=== PATIENT | female | born 1935 | race Caucasian/White ===

== ENCOUNTER 2023-05-04 10:19 | Outpatient (CLI) | payer MEDICARE, SELFPAY | END 2023-05-04 10:20 | disposition home or self-care (01) | LOC: NFLDREF 05-07 18:11 | PROVIDERS: PCP Physician Assistant Medical; Referring Provider Physician Assistant Medical; Visit Provider Physician Assistant Medical | DX: E03.9 Hypothyroidism, unspecified (principal); E53.8 Deficiency of other specified B group vitamins; E78.5 Hyperlipidemia, unspecified; I10 Essential (primary) hypertension | CPT/HCPCS: 80053; 80061; 82607; 84443 ==

== ENCOUNTER 2024-07-25 09:58 | Outpatient (CLI) | payer MEDICARE, SELFPAY | END 2024-07-25 09:59 | disposition home or self-care (01) | LOC: NFLDREF 08-01 01:29 | PROVIDERS: PCP Physician Assistant Medical; Referring Provider Physician Assistant Medical; Visit Provider Physician Assistant Medical | DX: E53.8 Deficiency of other specified B group vitamins (principal); E03.9 Hypothyroidism, unspecified; I10 Essential (primary) hypertension; E78.5 Hyperlipidemia, unspecified; I48.91 Unspecified atrial fibrillation | CPT/HCPCS: 80053; 80061; 82607; 84439; 84443 ==

== ENCOUNTER 2024-08-16 12:36 | Outpatient (CLI) | payer MEDICARE, SELFPAY ==
--- NOTE | 2024-08-16 13:00 | CRLHL7_ITS ---
For Patients: As a result of the Century Cures Act, medical imaging exams and procedure reports are released immediately into your electronic medical record. You may view this report before your referring provider. If you have questions, please contact your health care provider. XR DXA Bone Mineral Density (BMD) Reason for exam: Asymptomatic menopausal state. Current height (in): 62. Weight (lb): 145. Menopause age: 45. Ethnicity: White. 1. Have you had a previous hip or vertebral fracture? No. 2. Have you had any fractures during your adult life which did not result from significant trauma (e.g., auto accident)? No. 3. Did either of your parents have a hip fracture? No. 4. Do you smoke? No. 5. Have you ever taken Glucocorticoids? No. 6. Do you have rheumatoid arthritis? No. 7. Do you have secondary osteoporosis? No. 8. Do you drink 3 or more alcoholic drinks per day? No. 9. Are you being treated for osteoporosis? No. 10. Have you ever taken any of the following medications: Actonel, Evista, Fosamax, Miacalcin, Reclast, Boniva, Forteo, HRT (i.e., estrogen/hormone therapy), Protelos, Prolia, Vitamin D, Calcium, other ??? please specify. ANSWER: Yes, Fosamax (i.e., alendronate) and calcium. 11. Do you have any of the following medical conditions: Anorexia or bulimia, asthma or emphysema, end stage renal disease, hyperparathyroidism, any seizure disorders, cancer, inflammatory bowel diseases, hysterectomy, other ??? please specify. ANSWER: Yes, cancer and hysterectomy. 12. What was your maximum height (inches)? 62. 13. Do you perform weight bearing exercise regularly? No. 14. Do you regularly consume dairy products? Yes. 15. Do you drink caffeinated beverages? No. 16. At what age did your period start? 14. 17. Are you premenopausal? No. 18. How many full-term pregnancies have you had? 4. 19. Have you ever missed your period for more than 6 months in a row (not including or menopause)? No. TECHNIQUE: Bone mineral density study was performed using the [employer]. FINDINGS: The results of the study expressed as bone mineral density (BMD) are as follows: Lumbar spine L3 to L4: BMD: 0.771 g/cm2. T-score: -3.0. Z-score: 0.0 Neck Left: BMD: 0.637 g/cm2. T-score: -1.9. Z-score: 0.6 Right: BMD: 0.634 g/cm2. T-score: -1.9. Z-score: 0.6 Total Left: BMD: 0.866 g/cm2. T-score: -0.6. Z-score: 1.7 Right: BMD: 0.835 g/cm2. T-score: -0.9. Z-score: 1.5 IMPRESSION: Osteoporosis. *Comparison exams done prior to 12/2019 were performed on different unit, [id number]. COMPARISON: Compared with scan of 01/06/2022, the bone mineral density has decreased by 1.5 percent at the spine and increased by 3.9 percent at the hip. Compared with scan of 04/23/2019, the bone mineral density has decreased by 7.4 percent at the spine and increased by 3.6 percent at the hip. Roger Patterson M.D. Diagnostic Radiologist [email or web address]/Dictated by: Roger Patterson MD @ 08/16/2024 4:41:00 PM (Electronically Signed)
== END 2024-08-16 12:37 | disposition home or self-care (01) ==
LOC: RAD 12:39
PROVIDERS: PCP Physician Assistant Medical; Visit Provider Physician Assistant Medical
DX: Z78.0 Asymptomatic menopausal state (principal); M81.0 Age-related osteoporosis without current pathological fracture
CPT/HCPCS: 77080

== ENCOUNTER 2024-09-03 19:45 | Emergency (ER) | payer MEDICARE, SELFPAY ==
--- OUTSIDE RECORDS SUMMARY | 2024-09-03 19:49 | XMS_ITS | Encounter Summary ---
Author Organization [facility] Address [address] [place] [address] Care Team Providers Care Corporate Tax Preparer Name Role Phone Chely Rodriges M.D. Primary Care Provider +1- [phone] Reason for Visit * Reason Comments Med Refill Encounter Details Date Type Department Care Team (Late st Contact Info) Description 07/03/2024 Refill Department of Family Medicine, [facility], in [address] [phone] Chely Rodriges M.D. [address] [place] [address] [phone] Med Refill Social History Tobacco Use Types Packs/Day Years Used Date Smoking Tobacco: Never Smokeless Tobacco: Never Humiliation, Afraid, Rape, and Kick questionnair e Answer Date Recorded Within the last year, have y ou been afraid of your partner or ex-partner? No 01/24/2023 Within the last year, have y ou been humiliated or emotionally abused in other ways by your partner or ex-partner? No Within the last year, have y ou been kicked, hit, slapped, or otherwise physically hurt by your partner or ex-partner? No 01/24/2023 Within the last year, have y ou been raped or forced to have any kind of sexual activity by your partner or ex-partner? No 01/24/2023 Overall Financial Resource Strain (CARDIA) Answe r Date Recorded How hard is it for you to pa y for the very basics like food, housing, medical care, and heating? Not very hard 01/24/2023 PHQ-2 Answer Date Recorded PHQ-2 Score 0 01/24/2023 Exercise Vital Sign Answer Date Recorde d On average, how many days pe r week do you engage in moderate to strenuous exercise (like a brisk walk)? Patient declined On average, how many minutes do you engage in exercise at this level? Patient declined 01/24/2023 Hunger Vital Sign Answer Date Recorded Within the past 12 months, y ou worried that your food would run out before you got the money to buy more. Never true Within the past 12 months, t he food you bought just didn't last and you didn't have money to get more. Patient declined 04/2023 PRAPARE - Transportation Answer Date Re corded In the past 12 months, has l ack of transportation kept you from medical appointments or from getting medications? No 01/15 In the past 12 months, has l ack of transportation kept you from meetings, work, or from getting things needed for daily living? No 01/24/2023 Nutrition Answer Date Recorded On average, how many serving s of fruits and vegetables do you eat per day (serving size is equal to 1 cup or approximately the size of a tennis ball)? 0-2 01/24/2023 Dental Answer Date Recorded Dental: Regular Dentist No 01/25/20 Employment Answer Date Recorded Employment status Retired 01/24/2023 Housing Stability Answer Date Recorded What is your living situation today? I have a [facility] place to live 01/24/2023 Comments Unknown Sex and Gender Information Value Date Recorded Sex Assigned at Female 09/04/2023 1:24 PM POWER PLANT SUPERINTENDENT Legal Sex Female 4:29 AM POWER PLANT SUPERINTENDENT Gender Identity Female 09/04/2023 1:24 PM POWER PLANT SUPERINTENDENT Sexual Orientation Straight 09/04/2023 1: 24 PM POWER PLANT SUPERINTENDENT documented as of this encounter Plan of Treatment Not on file documented as of this encounter Visit Diagnoses Not on filedocumented in this encounter Care Teams Corporate Tax Preparer Relationship Specialty Start Date End Date Chely Rodriges M.D. [address] [place] [phone] PCP - General Family Medicine 12/20/22 [facility] Operator Ground Based Air Defence 01/24/23 [facility] Assistant Loan Processor 01/24/23 documented as of this encounter
--- OUTSIDE RECORDS SUMMARY | 2024-09-03 19:49 | XMS_ITS | Encounter Summary ---
Author Organization [facility] Address [address] [place] [address] Care Team Providers Care Clay Stain Mixer Name Role Phone Chely Rodriges M.D. Primary Care Provider +1- [phone] Reason for Visit * Reason Comments Med Refill Encounter Details Date Type Department Care Team (Late st Contact Info) Description 07/25/2024 Refill Department of Family Medicine, [facility], in [address] [phone] Chely Rodriges M.D. [address] [place] [phone] Med Refill Social History Tobacco Use Types [...] Date Recorded Dental: Regular Dentist No 01/25/20 23 Employment Answer Date Recorded Employment status Retired 01/24/2023 Housing Stability Answer Date Recorded What is your living situation today? I have a [facility] place to live 01/24/2023 Comments Unknown Sex and Gender Information Value Date Recorded Sex Assigned at Female 09/04/2023 1:24 PM COUNTY CORONER Legal Sex Female 4:29 AM COUNTY CORONER Gender Identity Female 09/04/2023 1:24 PM COUNTY CORONER Sexual Orientation Straight 09/04/2023 1: 24 PM COUNTY CORONER documented as of this encounter Miscellaneous Notes * Telephone Encounter - Amie Olson - 07/26/2024 11:28 AM CST PCP elsewhere TY CORONER documented in this encounter Plan of Treatment Not on file documented as of this encounter Visit Diagnoses Not on filedocumented in this encounter Care Teams Clay Stain Mixer Relationship Specialty Start Date End Date Chely Rodriges M.D. [address] [place] [phone] PCP - General Family Medicine 12/20/22 [facility] Operating Manager 01/24/23 [facility] Concrete Gun Operator 01/24/23 documented as of this encounter
--- OUTSIDE RECORDS SUMMARY | 2024-09-03 19:49 | XMS_ITS | Clinical Summary ---
Author Organization [facility] Address [address] [place] [address] Care Team Providers Care Desktop Publisher Name Role Phone Chely Rodriges M.D. Primary Care Provider +1- [phone] Source Comments Patient records contain information from all sites at [facility]. For routine questions regarding patient records, call [phone] during business hours, M-F 8:00 AM - 5:00 PM Central Time. Record requests for emergency care only can be directed to [phone] at any time.[facility] Allergies No known active allergies Medications * This document contains information received from the source organization and may not represent a complete record from that organization. multivitamin tablet Take 1 tablet by mouth daily. 04/29/2016 Active vit C/E/cuperic/zin c/lutein (PRESERVISION LUTEIN ORAL) Take 1 tablet by mouth 2 (two) times a day. 04/29/2016 Active CALCIUM-VITAMIN D3-MAGNESIUM ORAL Take by mouth 2 (two) times a day. Active cyanocobalamin (VITAMIN B12) 1,000 mcg/mL injection every 6 (six) weeks. 12/12/2019 Active chlorthalidone (Hygroton) 25 mg tablet Take 0.5 tablets (12.5 mg total) by mouth daily. Patient needs Office Visit and Labs for further refills. 45 tablet 04/10/2024 Active alendronate (Fosamax) 70 mg tablet take 1 tablet by mouth once a week 12 tablet 04/11/2024 Active metoprolol succinate (Toprol XL) 50 mg 24 hr tablet Take 1 tablet (50 mg total) by mouth daily. Patient needs Office Visit for further refills. 90 tablet 06/18/2024 Active losartan (Cozaar) 50 mg tablet Take 1 tablet (50 mg total) by mouth daily. Patient needs Office Visit and Labs for further refills. 90 tablet 06/18/2024 Active Eliquis 5 mg tablet Take 1 tablet (5 mg total) by mouth 2 (two) times a day. Patient needs Office Visit for further refills. 60 tablet 07/19/2024 Active levothyroxine 75 mcg tablet Take 1 tablet (75 mcg total) by mouth daily. Patient needs Office Visit and Labs for further refills. 30 tablet 07/19/2024 Active rosuvastatin (Crestor) 5 mg tablet Take 1 tablet (5 mg total) by mouth daily. Patient needs Office Visit and Labs for further refills. 30 tablet 07/23/2024 Active Hospital, Clinic, or Other Facility Administered Medication Ordered Dose Route Frequency Start Date End Date Status lidocaine-EPINEPHrine 1%-1:200,000 injection 2-50 mL (XYLOCAINE W/EPI)Indications:Malignant Neoplasm Of Nose Basal Cell 2 - 50 mL Ifil As needed 11/10/2022 Active IHPgphsltjg-qxtollwua-BFNYECS rine 0.25%-1%-1:200,000 injection 2-50 mLIndications:Malignant Neoplasm Of Nose Basal Cell 2 - 50 mL Ifil As needed 11/10/2022 Active Active Problems Problem Noted Date Diagnosed Date Deficiency Vitamin B12 01/24/2023 Osteoporosis 01/24/2023 Hypothyroidism 01/24/2023 Hypertension Essential Primary 01/24/2023 Atrial Fibrillation Unspecified 04/21/2016 Encounters Date Type Department Care Team Description 08/21/2024 Orders Only [facility] PCP TH MNT Chely Rodriges M.D. Monitoring For Therapeutic Drug Therapy 07/25/2024 Refill Department of Family Medicine, [facility], in [address] [phone] Chely Rodriges M.D. Med Refill 07/21/2024 Refill Department of Family Medicine, [facility], in [address] [place] [phone] Chely Rodriges M.D. Med Refill 07/18/2024 Refill Department of Family Medicine, [facility], in [address] [place] [phone] Chely Rodriges M.D. Med Refill 07/03/2024 Refill Department of Family Medicine, [facility], in [address] [place] [phone] Chely Rodriges M.D. Med Refill 06/26/2024 Refill Department of Family Medicine, [facility], in [address] [place] [phone] Chely Rodriges M.D. Med Refill 06/18/2024 Refill Department of Family Medicine, [facility], in [address] [place] [phone] Chely Rodriges M.D. Med Refill from Last 3 Months Immunizations Immunization Administration Dates Next Due H1N1 All Forms 08/06/2009 HepA Adult 09/29/2010,08/06/2009 Influenza, Quadrivalent, Adj uvanted, Preservative Free 06/20/2022,06/10/2021,05/28/2020 Influenza, Seasonal, Injectable 09/29/2010 PCV13 06/29/2018 PCV20 01/24/2023 RZV (SHINGRIX) 08/23/2019,06/01/2019 SARS-COV-2 (COVID-19) - PFIZ ER BIVALENT TS(Discontinued)(12 YEARS OR OLDER) 12/21/2022 Td Preservative Free (TENIVAC, DECAVAC) 08/06/19 10 Tdap 01/24/2023,09/29/2010 TyVi (inj) 08/06/2009 YF 08/06/2009 influenza trivalent high dose (HD)(PF) 9,06/15/2018 Social History Tobacco Use Types Packs/Day Years Used Date Smoking Tobacco: Never Smokeless Tobacco: Never Tobacco Cessation:Counseling Given: Not Answered Humiliation, Afraid, Rape, and Kick questionnair e [...] your living situation today? I have a [facility] place to live 01/24/2023 Comments Unknown Sex and Gender Information Value Date Recorded Sex Assigned at Female 09/04/2023 1:24 PM TUBE COVERER Legal Sex Female 4:29 AM TUBE COVERER Gender Identity Female 09/04/2023 1:24 PM TUBE COVERER Sexual Orientation Straight 09/04/2023 1: 24 PM TUBE COVERER Last Filed Vital Signs Vital Sign Reading Time Taken Comments Blood Pressure 118/72 01/24/2023 2:24 PM CDT Pulse 67 01/24/2023 2:24 PM CDT Temperature - - Respiratory Rate - - Oxygen Saturation - - Inhaled Oxygen Concentration - - Weight 66 kg (145 lb 8.1 oz) 01/24/2023 2:24 PM CDT Height 153 cm (5' 0.24) 01/24/2023 2:24 PM CDT Body Mass Index 28.19 01/24/2023 2:24 PM CDT Plan of Treatment Health Maintenance Due Date Last Done Comments Creatinine Level (Kidney Function Test) 01/25/2024 01/24/2023, 04/29/2016 Potassium Level 01/25/2024 01/24/2023, 04/29/2016 Sodium Level 01/25/2024 01/24/2023, 04/29/2016 Visit: Chronic Disease, age 18+ 01/25/2024 01/24/2023 Visit: Medicare Annual Wellness 01/26/2024 01/24/2023, 01/24/2023 COVID-19 Vaccine ( season) 2024 06/15/2023, 12/21/2022, 06/20/2022, Additional history exists Influenza Vaccine (#1) 2024 , 06/20/2022, 06/10/2021, Additional history exists Depression Screening (Annual PHQ-2) 07/18/2024 Fall Risk Screen (Annual) 07/18/2024 DTaP,Tdap,and Td Vaccines (3 - Td or Tdap) 01/24/2033 01/24/2023, 09/29/2010, 08/06/2009 Hepatitis A Vaccines Completed 09/29/2010, 08/06/19 10 Zoster Vaccines Completed 08/23/2019, 06/01/2019 Pneumococcal vaccine (50+ years) Completed 01/24/2023, 06/29/2018 RSV vaccine - (32-36 weeks) or 60+ years Completed 06/15/2023 IPV Vaccines Aged Out No longer eligi ble based on patient's age to complete this topic Procedures Procedure Name Priority Date/Time Associated Diagnosis Comments BASIC METABOLIC PANEL, S/P Routine 01/24/2023 3:49 PM CDT Hypertension Essential Primary from Last 3 Months or Most Recently Relevant to Health Maintenance Results * (ABNORMAL) Basic Metabolic Panel (01/24/2023 3:49 PM CDT) Potassium, P 4.4 3.6 - 5.2 mmol/L 01/24/2023 4:08 PM CDT CNFL Sodium, P 142 135 - 145 mmol/L 01/24/2023 4:08 PM CDT CNFL Chloride, P 104 98 - 107 mmol/L 01/24/2023 4:08 PM CDT CNFL Bicarbonate, P 28 22 - 29 mmol/L 01/24/2023 4:08 PM CDT CNFL Anion Gap, P 10 7 - 15 01/24/2023 4:08 PM CDT CNFL BUN (Blood Urea Nitrogen), P 26(H) 6 - 21 mg/dL 01/24/2023 4:08 PM CDT CNFL Creatinine 1.10(H) 0.59 - 1.04 mg/dL 01/24/2023 4:08 PM CDT CNFL Estimated GFR (eGFR) 49(L) >=60 mL/min/BSA 01/24/2023 4:08 PM CDT CNFL Comment: Estimated GFR calculated using the 2020 CKD_EPI creatinine equation. Calcium, Total, P 9.9 8.8 - 10.2 mg/dL 01/24/2023 4:08 PM CDT CNFL Glucose, P 95 70 - 140 mg/dL 01/24/2023 4:08 PM CDT CNFL Blood (Blood, Venous) 01/24/2023 3:49 PM CDT 01/24/2023 3:50 PM CDT us Chely Rodriges M.D. LAB BLOOD ADD-ON Final Res ult [facility] [address] [place] [phone], [facility] CNFL [facility] [place] [phone] [place] [phone] from Last 3 Months or Most Recently Relevant to Health Maintenance Insurance [facility] Advance Directives For more information, please contact: [phone] Documents on File Type Date Recorded Patient Hvac Design Mechanical Engineer Expl anation Advance Directives 01/01/2016 12:00 AM Leg acy document. See document viewer. Care Teams Desktop Publisher Relationship Specialty Start Date End Date Chely Rodriges M.D. [id number] [place] [phone] PCP - General Family Medicine 12/20/22 [facility] Glass Or Mirror Inspector 01/24/23 [facility] Microbiology Coordinator 01/24/23
--- OUTSIDE RECORDS SUMMARY | 2024-09-03 19:49 | XMS_ITS | Clinical Summary ---
Author Organization [facility] Address [facility] [place] [address] Care Team Providers Care Yard Brakeman Name Role Phone [facility] [place] Primary Care Provider Allergies No known active allergies Medications calcium 500-125 MG-UNIT TABS Twice A Day Activ e ELIQUIS ANTICOAGULANT 5 MG tablet Take 5 mg by mouth 2 times daily 1 Active levothyroxine (SYNTHROID/LEVOTHR OID) 88 MCG tablet Take 88 mcg by mouth daily 1 Active losartan (COZAAR) 50 MG tablet Daily 1 Active cyanocobalamin (CYANOCOBALAMIN) 1000 MCG/ML injection Once 0 Active chlorthalidone (HYGROTON) 25 MG tablet Daily 1 Active alendronate (FOSAMAX) 70 MG tablet Every 7 Days 1 Active rosuvastatin (CRESTOR) 5 MG tablet Take 5 mg by mouth 1 Active metoprolol succinate ER (TOPROL-XL) 50 MG 24 hr tablet Daily 1 Active ketoconazole (NIZORAL) 2 % external creamIndications:I ngrown nail of great toe of right foot,Ingrown nail of great toe of left foot,Onychomycosis of great toe Apply topically daily 30 g 6 1 Active Social History Tobacco Use Types Packs/Day Years Used Date Smoking Tobacco: Never Smokeless Tobacco: Never Tobacco Cessation:Counseling Given: Yes Adolescent Education Answer Date Record ed Getting School Help Needed Not on file 04/09 Comments Unknown Sex and Gender Information Value Date Recorded Sex Assigned at Not on file Legal Sex Female 11:42 AM SOCIALLY RESPONSIBLE INVESTMENT ADVISER Gender Identity Not on file Sexual Orientation Not on file Last Filed Vital Signs Vital Sign Reading Time Taken Comments Blood Pressure 128/78 01/07/2021 10:24 AM CDT Pulse - - Temperature - - Respiratory Rate - - Oxygen Saturation - - Inhaled Oxygen Concentration - - Weight 63.5 kg (140 lb) 01/07/2021 10:24 AM CDT Height 157.5 cm (5' 2) 01/07/2021 10:24 AM CDT Body Mass Index 25.61 01/07/2021 10:24 AM CDT Plan of Treatment Health Maintenance Due Date Last Done Comments ADVANCE CARE PLANNING 1935 ANNUAL REVIEW OF HM ORDERS 1935 DEXA 1935 LIPID 1935 TSH W/FREE T4 REFLEX 1935 FALL RISK ASSESSMENT 2000 RSV VACCINE (1 - 1-dose 75+ series) 2010 Pneumococcal Vaccine: 50+ Years (2 of 2 - PPSV23) 06/29/2019 06/29/2018 DTAP/TDAP/TD IMMUNIZATION (2 - Td or Tdap) 09/29/2020 09/29/2010, 08/06/2009 COVID-19 Vaccine (3 - season) 2024 09/13/2020, 08/23/2020 INFLUENZA VACCINE (#1) 2024 0, 06/01/2019, 06/15/2018, Additional history exists PHQ-2 (once per calendar year) 2024 ZOSTER IMMUNIZATION Completed 08/23/2019, 9 HPV IMMUNIZATION Aged Out No longer e ligible based on patient's age to complete this topic MENINGITIS IMMUNIZATION Aged Out No l onger eligible based on patient's age to complete this topic Insurance MEDICARE [facility] OF IN MEDICARE SUPPLEMENT Care Teams Yard Brakeman Relationship Specialty Start Date End Date [facility], [place] [address] [place] [address] PCP - General 01/07/21
--- OUTSIDE RECORDS SUMMARY | 2024-09-03 19:49 | XMS_ITS | Encounter Summary ---
Author Organization [facility] Address [address] [place] [address] Care Team Providers Care Birdcage Assembler Name Role Phone Chely Rodriges M.D. Primary Care Provider +1- [phone] Reason for Referral * Outpatient (Routine) - Authorized Specialty Diagnoses / Procedures Referred By Contac t Referred To Contact Chely Rodriges M.D. [address] [place] [phone] Phone: tel: fax: [facility] Referral ID Status Reason Start Date Expiration Date V isits Requested Visits Authorized [id number] Authorized 08/21/2024 02/20/2026 1 1 Scheduling Instructions Nurse AWV Do not schedule prior to due date to ensure insurance coverage Visit: Medicare Annual Wellness due on 01/26/2024. OR MEDIA BUYER Encounter Details Date Type Department Care Team (Late st Contact Info) Description 08/21/2024 [facility] Only [facility] Chely Rodriges M.D. [address] [place] [phone] Monitoring For Therapeutic Drug Therapy Social History Tobacco Use Types Packs/Day Years [...] your living situation today? I have a [facility] place to live 01/24/2023 Comments Unknown Sex and Gender Information Value Date Recorded Sex Assigned at Female 09/04/2023 1:24 PM JUNIOR MEDIA BUYER Legal Sex Female 4:29 AM JUNIOR MEDIA BUYER Gender Identity Female 09/04/2023 1:24 PM JUNIOR MEDIA BUYER Sexual Orientation Straight 09/04/2023 1: 24 PM JUNIOR MEDIA BUYER documented as of this encounter Plan of Treatment Scheduled Orders Name Type Priority Associated Diagnoses Orde r Schedule Basic Metabolic Panel Lab Routine Monitoring For Therapeutic Drug Therapy Expected: 09/04/2024, Expires: 02/07/2025 Scheduled Referrals Name Type Priority Associated Diagnoses Orde r Schedule Primary Care nurse visit (clinic) - [facility]; Medicare Annual Wellness Outpatient Referral Routine Expected: 09/18/2024, Expires: 02/07/2025 documented as of this encounter Visit Diagnoses Diagnosis Monitoring For Therapeutic Drug Therapy documented in this encounter Care Teams Birdcage Assembler Relationship Specialty Start Date End Date Chely Rodriges M.D. NPMartina: [phone] [address] [place] [phone] PCP - General Family Medicine 12/20/22 [facility] Spring Coiler 01/24/23 [facility] Services Delivery Driver 01/24/23 documented as of this encounter
--- OUTSIDE RECORDS SUMMARY | 2024-09-03 19:49 | XMS_ITS | Encounter Summary ---
Author Organization [facility] Address [address] [place] [address] Care Team Providers Care Senior Php Developer Name Role Phone Chely Rodriges M.D. Primary Care Provider +1- [phone] Reason for Visit * Reason Comments Med Refill Encounter Details Date Type Department Care Team (Late st Contact Info) Description 07/21/2024 Refill Department of Family Medicine, [facility], in [address] [phone] Cheyl Rodriges M.D. [address] [place] [phone] Med Refill Social History Tobacco Use Types [...] your living situation today? I have a [facility] place to live 01/24/2023 Comments Unknown Sex and Gender Information Value Date Recorded Sex Assigned at Female 09/04/2023 1:24 PM SUPERVISOR REAL ESTATE OFFICE Legal Sex Female 4:29 AM SUPERVISOR REAL ESTATE OFFICE Gender Identity Female 09/04/2023 1:24 PM SUPERVISOR REAL ESTATE OFFICE Sexual Orientation Straight 09/04/2023 1: 24 PM SUPERVISOR REAL ESTATE OFFICE documented as of this encounter Plan of Treatment Not on file documented as of this encounter Visit Diagnoses Not on filedocumented in this encounter Care Teams Senior Php Developer Relationship Specialty Start Date End Date Chely Rodriges M.D. [address] [place] [phone] PCP - General Family Medicine 12/20/22 [facility] Gamemaster 01/24/23 [facility] Tuft Machine Operator 01/24/23 documented as of this encounter
--- OUTSIDE RECORDS SUMMARY | 2024-09-03 19:49 | XMS_ITS | Continuity of Care Document ---
Author Organization [facility] Address [address] [place] [phone] Phone Care Team Providers Care Accounts Specialist Name Role Phone David Cohen O.D. Unavailable Unavailab le Medications Medication Instructions Dosage Effective Dates (start - stop) Status Comments Lamisil 250 mg Tab - Active Aspir-Low 81 mg Tab - Active Crestor 10 mg Tab - Active Levoxyl 88 mcg Tab - Active Procedures Procedure Date EYE EXAM, NEW PATIENT REFRACTION Advance Directives Directive Yes / No Effective Date File Name Resuscitation Not Answered N/A N/A Life Support Not Answered N/A N/A Intubation Not Answered N/A N/A Antibiotics Not Answered N/A N/A IV Fluid Support Not Answered N/A N/A Tube Feed Not Answered N/A N/A Other Directive N/A N/A WARNING:The information contained in this section is historical and is provided for information only and does not constitute a legal document or any assurance that the information is still accurate. Please verify the information with the scales of the legal document before using it for clinical purposes. Encounters Encounter Description Practice Location Reason(s) For Visit Diagnoses Date Provider Providers Copied on Encounter [facility], [address] [place] [address], [id number], tel:[phone] [facility] Senile nuclear sclerosis Vicki Hernandez. [address] [place] [address], [id number], . tel:[phone] Referring Provider: David Hughes, [address] [place] [address], [id number]. tel:[phone] Family History Family Member Type Diagnosis Age At Onset Mother Problem (finding) Cancer Father Problem (finding) cataract Father Problem (finding) Heart Disease Payers Payer name Insurance type Covered democrat ID Authoriza tion(s) Medicare MB [id number] [facility] [id number] Social History Type Description Quantity Date Captured Comments Alcohol Use Details No Caffeine Use Details 3 cups per day Tobacco Use Status No Information Smoking Status No Information Sex Female Chief Complaint And Reason For Visit No Information Reason For Referral Reason For Referral No Information History Of Present Illness Encounter Date Complaint History Of Prese nt Illness No Information Functional Status Date Functional Assessmen t No Information Instructions Date Instruction Additional Infor mation Cataract, Nuclear Sc lerosis, OU - Discussed cataract diagnosis with the patient. Will continue to observe condition and symptoms. New glasses Rx given today. Related to Cataract, Nuclear Sclerosis - Return in 1 year for Complete Exam, Related to Cataract, Nuclear Sclerosis Assessments Type Assessment Date No Information Patient Care Teams Name Effective Dates (start - stop) Status Members No Information
[2024-09-03 19:57] VITALS: BP 148/97; PULSE 58; RESP 16; TEMP 36.6; O2SAT 99; BMI 27.4
--- NOTE | 2024-09-03 20:25 | ED_ITS ---
HPI - General Adult General Time Seen by Provider: 20:25 <Tiffanie Church MD - Last Filed: 09/05/24 11:01> Date Seen: 09/03/24 <Tiffanie Church MD - Last Filed: 09/05/24 11:01> Chief complaint: Hypertension <Tiffanie Church MD - Last Filed: 09/05/24 11:01> Stated complaint: Dizzy, thinks BP is high <Tiffanie Church MD - Last Filed: 09/05/24 11:01> Time Seen by Provider: 09/03/24 20:25 <Tiffanie Church MD - Last Filed: 09/05/24 11:01> Source: patient, RN notes reviewed and old records reviewed <Tiffanie Florian MD - Last Filed: 09/05/24 11:01> Mode of arrival: ambulatory <Tiffanie Church MD - Last Filed: 09/05/24 11:01> Limitations: no limitations <Tiffanie Church MD - Last Filed: 09/05/24 11:01> History of Present Illness HPI narrative: This 89-year-old female is coming in with an episode of lightheaded or dizziness which was definitely a sense of spinning. She just had it happened suddenly earlier today around 5:00 a.m., does not remember really doing any position change or moving. She believes she was just standing there, had to sit down. She had to keep her eyes closed for a bit. She did not feel like she could get up, had her bring her something to drink. She had blood pressures in the 160s over 90s, she thought maybe she should check her blood pressure. She typically states her blood pressure is not high. She has felt a little unsteady with walking at times. Right now just sitting on the bed she is feeling fine. Was noted when she walked from triage to exam room 1 which is about maybe 10 ft, she did catch herself on the wall. She notes no headache, cannot say that there any visual changes. Her states that she looked wobbly to him walking earlier. The major episode of this was between 5-6 p.m. per report. She does state it does seem to come and go though. She thought maybe of stroke. During her recent physical she states her thyroid medicine was off. She was told to start making sure she was taking her Synthroid in the morning on an empty stomach before food, she had not been taking it that way. Her TSH on July 25 was 50.4 and her free T4 low at 0.63. She has a history of atrial fibrillation and is chronically anticoagulated with Eliquis. She does have hypertension and hyperlipidemia as well. <Tiffanie Church MD - Last Filed: 09/05/24 11:01> Related Data Home medications: Home Medications ?Medication ?Instructions ?Recorded ?Confirmed calcium 500 mg (as 600 tab PO BID 07/29/22 09/04/24 carbonate)-vitamin D3 3.125 mcg (125 unit) tablet cyanocobalamin (vitamin B-12) 1,000 mcg IM .Every 30 Days 07/29/22 09/04/24 1,000 mcg/mL injection solution multivitamin 1 tab PO QAM 07/29/22 09/04/24 vit C 250 mg-vit E 90 mg-zinc 40 1 tab PO BID 10/28/22 09/04/24 mg-copper 1 [id number] capsule (PreserVision AREDS-2) rosuvastatin 5 mg tablet 5 mg PO HS 09/04/24 09/04/24 Previous Rx's ?Medication ?Instructions ?Recorded alendronate 70 mg tablet 70 mg PO .weekly 3 months #13 tabs 07/26/24 apixaban 5 mg tablet (Eliquis) 5 mg PO BID #180 tabs 07/26/24 chlorthalidone 25 mg tablet 12.5 mg (1/2 x 25 mg) PO DAILY #90 07/26/24 tabs levothyroxine 75 mcg tablet 75 mcg PO DAILY #60 tabs 07/26/24 losartan 50 mg tablet 50 mg PO DAILY #90 tabs 07/26/24 metoprolol succinate 50 mg 50 mg PO QDAY #90 tabs 07/26/24 tablet,extended release 24 hr <Tiffanie Church MD - Last Filed: 09/05/24 11:01> Allergies/adverse reactions: Allergies Allergy/AdvReac Type Severity Reaction Status Date / Time No Known Allergies Allergy Verified 09/03/24 21:50 <Tiffanie Church MD - Last Filed: 09/05/24 11:01> Review of Systems Status of ROS: Reports: 6 or more systems reviewed and unremarkable except as noted in History and below <Tiffanie Church MD - Last Filed: 09/05/24 11:01> [facility] Medical History: Medical History Shingles ?B02.9 - Zoster without complications (ICD-10) Bug bite ?W57.XXXA - Bitten or stung by nonvenomous insect and other nonvenomous arthropods, initial encounter (ICD-10) Cellulitis ?L03.90 - Cellulitis, unspecified (ICD-10) Pharyngitis ?J02.9 - Acute pharyngitis, unspecified (ICD-10) Normal stress echocardiography Cataract of both eyes ?H26.9 - Unspecified cataract (ICD-10) <Tiffanie Church MD - Last Filed: 09/05/24 11:01> Surgical History: Surgical History History of tonsillectomy ?Z90.89 - Acquired absence of other organs (ICD-10) History of hysterectomy ?Z90.710 - Acquired absence of both cervix and uterus (ICD-10) History of colonoscopy ?Z98.890 - Other specified postprocedural states (ICD-10) History of cataract removal with insertion of prosthetic lens ?Z98.49 - Cataract extraction status, unspecified eye (ICD-10) ?Z96.1 - Presence of intraocular lens (ICD-10) History of blepharoplasty ?Z98.890 - Other specified postprocedural states (ICD-10) <Tiffanie Church MD - Last Filed: 09/05/24 11:01> Family History: Family History Mother Cancer Father Cardiac pacemaker <Tiffanie Church MD - Last Filed: 09/05/24 11:01> Social History: Social History Narrative: Has 4 children -- 4 daughters Non-smoker Smoking Status: Former smoker Second hand tobacco smoke exposure: No How often do you have a drink containing alcohol: never How often do you have six or more drinks on one occasion: Never AUDIT-C Alcohol total score: 0 Non-prescribed substance use: denies use service: No <Tiffanie Church MD - Last Filed: 09/05/24 11:01> Exam Const: Vital Signs, click to edit/add: Vital Signs - 24 hr 09/04/24 11:11 Pulse Rate [Pulse Oximeter] 72 Respiratory Rate 14 Blood Pressure [Le ft Upper Arm] 128/69 Pulse Oximetry 95 Oxygen Delivery Me thod Room Air This 89-year-old female is alert, interactive, no apparent distress. She did ambulate into the ED of her own accord. Pupils are equal round reactive, extraocular muscles intact but there is left beating nystagmus horizontally. Symmetrical facial function, speech is normal. She has bilateral hearing aids in. Neck is supple, no masses or adenopathy. Lungs are clear, good air entry, wheeze or crackles. CV sounds regular, do not hear any ectopy, no significant murmur, normal S1-S2. She has normal rapid alternating finger movements, normal [id number]. Strength is 5/5 and symmetric through out upper and lower extremities. Did not have patient ambulate at this point but do note nurses history. <Tiffanie Church MD - Last Filed: 09/05/24 11:01> Vital Signs, click to edit/add: Vital Signs - 24 hr 09/04/24 11:11 Pulse Rate [Pulse Oximeter] 72 Respiratory Rate 14 Blood Pressure [Le ft Upper Arm] 128/69 Pulse Oximetry 95 Oxygen Delivery Me thod Room Air <Cele Abreu MD - Last Filed: 09/04/24 14:46> Documenting provider has reviewed patient's vital signs: yes <Tiffanie Church MD - Last Filed: 09/05/24 11:01> Course Course ED Course: I do think we should proceed with CT imaging with head noncontrast and then CT angio head and neck. <Tiffanie Church MD - Last Filed: 09/05/24 11:01> Reevaluation(s) Time of Reevaluation #1: 22:20 <Tiffanie Church MD - Last Filed: 09/05/24 11:01> Reevaluation #1: Patient is resting, she is reported to be feeling fine when I awoke her. Have reviewed the imaging reports which are reassuring. Will talk to Neurology and let her know the final plan. <Tiffanie Church MD - Last Filed: 09/05/24 11:01> Time of Reevaluation #2: 22:35 <Tiffanie Church MD - Last Filed: 09/05/24 11:01> Reevaluation #2: Patient was resting again, awakens easily. She is advised of her options. Given that she is feeling back to baseline, she can try to proceed outpatient and have MRI of her brain noncontrast ordered outpatient in the near future. She certainly is to return if she has any recurrent symptoms in the interim. If she does feel symptomatic between waking up and attempting to go home, would have her wait in the ER and get the MRI ordered for; did review that we can also do this if she does not feel comfortable going home. We discussed that the MRI is ultimately better at ruling out acute strokes, much more sensitive than the CT. At this time, she and her would like to proceed home. They understand if there is any recurrent symptoms that they do need to return and we will need to get an MRI done at that point before any discharge. <Tiffanie Church MD - Last Filed: 09/05/24 11:01> Time of Reevaluation #3: 22:42 <Tiffanie Church MD - Last Filed: 09/05/24 11:01> Reevaluation #3: Nursing staff attempted to get patient up to go home, she had recurrent vertigo, felt dizzy again. Patient attempted to sit still but movement precipitated her symptoms. We will keep her here in the ED as there are no beds in the facility, will order her MR brain for tomorrow. Will update neurologist that she will be here. Will have lipids, hemoglobin A1c and echo ordered, she will be on cardiac monitoring. Patient will be boarding in the bed overnight or in tell we have capacity to admit for observation. 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 She has been resting comfortably. She had her MRI which I reviewed the results of both by radiologist and by talking with Dr. Pace, who is on for Neurology this morning. There is no evidence of acute stroke. Patient reportedly is symptomatically better this morning and Dr. Pace feels this is likely peripheral vertigo. Her hemoglobin A1c was 6, cholesterol was normal. She has echo pending shortly, will get her up to have her walk a little bit and make sure she is feeling stable. If so, discharge home with symptomatic treatment and primary care follow-up. Echo completed. She has been up and ambulatory, has had lunch, is feeling well at this point I think is stable for discharge. I would like her to follow up with her primary doctor so that they can follow up on results of the echo and recheck how she is doing symptomatically. Return if severe symptoms, not able to manage home, or if new problems develop. <Cele Abreu MD - Last Filed: 09/04/24 14:46> Consultations Consultation #1: Have reviewed with Dr. Maria this patient's situation. She agrees with CT/CT angio, will contact her once these have been read. 10:21 p.m.: Have updated Dr. Maria regarding CT imaging. We do not have any beds in our facility, patient is back to baseline. I am going to have informed discussion with patient. We can hold her in the ER overnight for MRI in the morning when able or she can get scheduled for outpatient MRI through her primary as long as she has no recurrent symptoms. If she were to have recurrent symptoms would have her return to us in the interim. <Tiffanie Church MD - Last Filed: 09/05/24 11:01> Time: 20:44 <Tiffanie Church MD - Last Filed: 09/05/24 11:01> Vital Signs Vital signs: Initial Vital Signs Temperature 97.8 F 09/03/24 19:57 Temperature Source Temporal Artery Scan 09/03/24 19:57 Pulse Rate 58 L 09/03/24 19:57 Respiratory Rate 16 09/03/24 19:57 Blood Pressure 148/97 H 09/03/24 19:57 Blood Pressure Mean 114 H 09/03/24 19:57 Blood Pressure Position Sitting 09/03/24 19:57 Pulse Oximetry 99 09/03/24 19:57 Oxygen Delivery Method Room Air 09/03/24 19:57 Vital Signs Temperature 97.8 F 09/03/24 19:57 Pulse Rate 58 L 09/03/24 19:57 Respiratory Rate 16 09/03/24 19:57 Blood Pressure 148/97 H 09/03/24 19:57 Pulse Oximetry 99 09/03/24 19:57 Oxygen Delivery Method Room Air 09/03/24 19:57 Temperature 97.8 F 09/03/24 19:57 Pulse Rate 72 09/04/24 11:11 Respiratory Rate 14 09/04/24 11:11 Blood Pressure 128/69 09/04/24 11:11 Pulse Oximetry 95 09/04/24 11:11 Oxygen Delivery Method Room Air 09/04/24 11:11 <Tiffanie Church MD - Last Filed: 09/05/24 11:01> Initial Vital Signs Temperature 97.8 F 09/03/24 19:57 Temperature Source Temporal Artery Scan 09/03/24 19:57 Pulse Rate 58 L 09/03/24 19:57 Respiratory Rate 16 09/03/24 19:57 Blood Pressure 148/97 H 09/03/24 19:57 Blood Pressure Mean 114 H 09/03/24 19:57 Blood Pressure Position Sitting 09/03/24 19:57 Pulse Oximetry 99 09/03/24 19:57 Oxygen Delivery Method Room Air 09/03/24 19:57 Vital Signs Temperature 97.8 F 09/03/24 19:57 Pulse Rate 58 L 09/03/24 19:57 Respiratory Rate 16 09/03/24 19:57 Blood Pressure 148/97 H 09/03/24 19:57 Pulse Oximetry 99 09/03/24 19:57 Oxygen Delivery Method Room Air 09/03/24 19:57 Temperature 97.8 F 09/03/24 19:57 Pulse Rate 72 09/04/24 11:11 Respiratory Rate 14 09/04/24 11:11 Blood Pressure 128/69 09/04/24 11:11 Pulse Oximetry 95 09/04/24 11:11 Oxygen Delivery Method Room Air 09/04/24 11:11 <Cele Abreu MD - Last Filed: 09/04/24 14:46> Medications Administered Medications: Discontinued Medications Generic Name Dose Route Start Last Admin Trade Name Freq PRN Reason Stop Dose Admin Apixaban 5 mg 09/04/24 09:00 09/04/24 09:08 Apixaban 5 Mg Tablet PO 5 mg BID CRISTHIAN Administration Meclizine HCl 25 mg 09/03/24 22:57 09/03/24 23:10 Meclizine Hcl 25 Mg Tablet PO 25 mg TID PRN Administration Perflutren Lipid Microsphere 2 ml 09/04/24 13:20 09/04/24 13:21 Perflutren Lipid Microspheres 2 Ml Vial IVP 09/04/24 13:21 2 ml ONCE ONE Administration <Tiffanie Church MD - Last Filed: 09/05/24 11:01> Discontinued Medications Generic Name Dose Route Start Last Admin Trade Name Freq PRN Reason Stop Dose Admin Apixaban 5 mg 09/04/24 09:00 09/04/24 09:08 Apixaban 5 Mg Tablet PO 5 mg BID CRISTHIAN Administration Meclizine HCl 25 mg 09/03/24 22:57 09/03/24 23:10 Meclizine Hcl 25 Mg Tablet PO 25 mg TID PRN Administration Perflutren Lipid Microsphere 2 ml 09/04/24 13:20 09/04/24 13:21 Perflutren Lipid Microspheres 2 Ml Vial IVP 09/04/24 13:21 2 ml ONCE ONE Administration <Cele Abreu MD - Last Filed: 09/04/24 14:46> Medical Decision Making Lab Data Lab results reviewed: Yes I reviewed the patient's lab results <Tiffanie Church MD - Last Filed: 09/05/24 11:01> Labs: Lab Results 09/03/24 09/03/24 09/04/24 Range/Units 20:45 20:45 07:06 WBC 6.16 (4.50-11.00) K/uL RBC 3.93 L (4.00-5.20) m/uL Hgb 12.4 (12.0-16.0) gm/dL Hct 37.4 (33.0-51.0) % MCV 95 (80-100) fL MCH 32 (26-34) pg MCHC 33 (32-36) gm/dL RDW Coeff of Rojas 12.4 (11.5-15.5) % Plt Count 162 (140-440) K/uL Neut % (Auto) 61.1 (42.0-72.0) % Lymph % (Auto) 24.2 (20-44) % Scott % (Auto) 8.4 (0.0-11.0) % Eos % (Auto) 4.7 (0.0-7.0) % Baso % (Auto) 0.6 (0.0-3.0) % Neut # (Auto) 3.76 (1.7-7.0) K/uL Lymph # (Auto) 1.49 (0.90-2.90) K/uL Scott # (Auto) 0.50 (0.00-0.90) K/UL Eos # (Auto) 0.29 (0.00-0.50) K/uL Baso # (Auto) 0.04 (0.00-0.30) K/uL Abs Immat Gran (auto) 0.06 (0.00-0.30) K/uL Imm/Tot Granulo (auto) 1.0 % Sodium 138 (135-149) mmol/L Potassium 3.7 (3.6-5.1) mmol/L Chloride 101 (96-114) mmol/L Carbon Dioxide 30 (20-32) mmol/L Anion Gap 7 (7-15) mEq/L BUN 28 (7-30) mg/dL Creatinine 1.1 (0.5-1.5) mg/dL Estimated Creat Clear 27.42 Estimated GFR 48 ml/min Glucose 125 H (60-115) mg/dL Hemoglobin A1c 6.0 H (0-5.6) % Calcium 9.4 (8.4-10.6) mg/dL Magnesium 2.3 Cancelled (1.5-2.6) mg/dL Total Bilirubin 0.6 (0.1-1.5) mg/dL AST 34 (12-35) U/L ALT 32 (4-35) U/L Alkaline Phosphatase 48 (40-150) U/L Total Protein 6.9 (6.0-8.3) g/dL Albumin 4.4 (3.3-5.0) g/dL Triglycerides 66 (40-149) mg/dL Cholesterol 146 (90-199) mg/dL LDL Cholesterol, Calc 57 (<100) mg/dL HDL Cholesterol 76 (>=50) mg/dL <Tiffanie Church MD - Last Filed: 09/05/24 11:01> Lab Results 09/03/24 09/03/24 09/04/24 Range/Units 20:45 20:45 07:06 WBC 6.16 (4.50-11.00) K/uL RBC 3.93 L (4.00-5.20) m/uL Hgb 12.4 (12.0-16.0) gm/dL Hct 37.4 (33.0-51.0) % MCV 95 (80-100) fL MCH 32 (26-34) pg MCHC 33 (32-36) gm/dL RDW Coeff of Rojas 12.4 (11.5-15.5) % Plt Count 162 (140-440) K/uL Neut % (Auto) 61.1 (42.0-72.0) % Lymph % (Auto) 24.2 (20-44) % Scott % (Auto) 8.4 (0.0-11.0) % Eos % (Auto) 4.7 (0.0-7.0) % Baso % (Auto) 0.6 (0.0-3.0) % Neut # (Auto) 3.76 (1.7-7.0) K/uL Lymph # (Auto) 1.49 (0.90-2.90) K/uL Scott # (Auto) 0.50 (0.00-0.90) K/UL Eos # (Auto) 0.29 (0.00-0.50) K/uL Baso # (Auto) 0.04 (0.00-0.30) K/uL Abs Immat Gran (auto) 0.06 (0.00-0.30) K/uL Imm/Tot Granulo (auto) 1.0 % Sodium 138 (135-149) mmol/L Potassium 3.7 (3.6-5.1) mmol/L Chloride 101 (96-114) mmol/L Carbon Dioxide 30 (20-32) mmol/L Anion Gap 7 (7-15) mEq/L BUN 28 (7-30) mg/dL Creatinine 1.1 (0.5-1.5) mg/dL Estimated Creat Clear 27.42 Estimated GFR 48 ml/min Glucose 125 H (60-115) mg/dL Hemoglobin A1c 6.0 H (0-5.6) % Calcium 9.4 (8.4-10.6) mg/dL Magnesium 2.3 Cancelled (1.5-2.6) mg/dL Total Bilirubin 0.6 (0.1-1.5) mg/dL AST 34 (12-35) U/L ALT 32 (4-35) U/L Alkaline Phosphatase 48 (40-150) U/L Total Protein 6.9 (6.0-8.3) g/dL Albumin 4.4 (3.3-5.0) g/dL Triglycerides 66 (40-149) mg/dL Cholesterol 146 (90-199) mg/dL LDL Cholesterol, Calc 57 (<100) mg/dL HDL Cholesterol 76 (>=50) mg/dL <Cele Abreu MD - Last Filed: 09/04/24 14:46> Imaging Data CT scan - head: Attestation: I have reviewed the pertinent imaging results. <Tiffanie Florian MD - Last Filed: 09/05/24 11:01> Radiologist's impression: Patient: AGGIE JEREZ Facility:?[facility] Patient ID:?[id number] Site Patient ID:?[id number]. Site :?[id number] Study:?CT-Head W/O-09/03/2024 9:52:57 PM Ordering Physician:Lisa Moreno Final Report: INDICATION: VERTIGO, GAIT IMBALANCE - STARTED ABOUT 5PM TODAY. COMES AND GOES TECHNIQUE: Non-contrast CT of the head is submitted. COMPARISON: None. FINDINGS: The ventricles, sulci and gyri are of normal size, shape and contour for age. Midline structures are centrally located. No convincing evidence of intra- or extra-axial fluid collections. Trace bilateral mastoid effusions. IMPRESSION: No radiographic evidence of acute intracranial abnormalities. Please note that all CT scans at this facility use dose modulation, iterative reconstruction, and/or weight-based dosing when appropriate to reduce radiation dose to as low as reasonably achievable. Dictated by Yuri Ortiz MD @ 09/03/2024 10:08:30 PM (Electronic Signature) <Tiffanie Church MD - Last Filed: 09/05/24 11:01> CT angio head/neck: Attestation: I have reviewed the pertinent imaging results. <Tiffanie Florian MD - Last Filed: 09/05/24 11:01> Radiologist's impression: Patient: AGGIE JEREZ Facility:?[facility] Patient ID:?[id number] Site Patient ID:?[id number]. Site :?1935 Study:?CT-Head Angio W/ 95CC ISOVUE 370-09/03/2024 9:53:29 PM Ordering Physician:Lisa Moreno Preliminary Report: COMPARISON: None. IMPRESSION: CTA head: No sign of occlusion or significant aneurysm. CTA neck: No sign of dissection or flow-limiting stenosis. Dictated by Yuri Ortiz MD @ 09/03/2024 10:12:41 PM Read by:?Yuri Ortiz MD @09/03/2024 10:13:58 PM <Tiffanie Church MD - Last Filed: 09/05/24 11:01> MR Brain: Attestation: I have reviewed the pertinent imaging results. <Cele Abreu MD - Last Filed: 09/04/24 14:46> Radiologist's impression: Patient: Aggie Jerez MR#: [id number] : 1935 Acct:[id number] Loc: ED Service Date: 09/04/[address]: Ordering Physician: Tiffanie Church M.D. Date of Service: 09/04/24 Procedure(s): MR head/brain wo con Accession Number(s): [id number] cc: Adalid MAY; Tiffanie Church M.D.~ For Patients: As a result of the 21st Century Cures Act, medical imaging exams and procedure reports are released immediately into your electronic medical record. You may view this report before your referring provider. If you have questions, please contact your health care provider. Indication: Vertigo. Gait imbalance. Technique: Multiplanar, multisequence MRI of the brain was performed without intravenous contrast. Comparison: CT head 09/03/2024. Findings: The corpus callosum, pituitary gland and clivus appear intact. Mild degenerative change visualized upper cervical spine. There is no restricted diffusion. No intracranial hemorrhage. The ventricles are proportionate to the cerebral sulci. The 4th ventricle appears midline. The basal cisterns appear patent. No abnormal extra-axial fluid collection identified. Mild parenchymal volume loss. Scattered T2 FLAIR hyperintense foci within the subcortical and periventricular white matter, favored to represent chronic ischemic microvascular disease. There is no intracranial mass, abnormal mass-effect or midline shift identified. Major intracranial vascular flow voids appear grossly intact. Thinning of the ocular lenses. Small left mastoid effusion. Impression: 1. No acute/subacute infarct. 2. Mild chronic ischemic microvascular disease. Dictated by Sid Zamorano MD @ 09/04/2024 11:12:25 AM <Cele Abreu MD - Last Filed: 09/04/24 14:46> ECG Data Attestation: I personally reviewed and interpreted this ECG as follows: (Atrial fibrillation, 57 beats per minute. Flipped T-waves inferiorly and V4 through V6 without ST segment changes.) <Tiffanie Church MD - Last Filed: 09/05/24 11:01> Prior ECG tracings: not available for review <Tiffanie Church MD - Last Filed: 09/05/24 11:01> Discharge Plan Discharge Clinical Impression: Vertigo, Atrial fibrillation <Tiffanie Church MD - Last Filed: 09/05/24 11:01> Patient Disposition: Home, Self-Care <Tiffanie Church MD - Last Filed: 09/05/24 11:01> Condition: Improved <Tiffanie Church MD - Last Filed: 09/05/24 11:01> Instructions: Vertigo (ED) <Tiffanie Church MD - Last Filed: 09/05/24 11:01> Additional Instructions: Your MRI is reassuring, there is no evidence of stroke. Symptoms are likely related to an inner ear issue, this sometimes can be waxing and waning or recurrent. If you are not able to manage at home due to symptoms, return to the ER. Otherwise, please follow-up with your primary care doctor to review echo results and for recheck. Stay on current medications including your blood thinner. It is important for you to take the Eliquis twice a day as prescribed for chronic anticoagulation for your atrial fibrillation. <Tiffanie Church MD - Last Filed: 09/05/24 11:01> Activity Level: Activity as Tolerated <Tiffanie Church MD - Last Filed: 09/05/24 11:01> Activity as Tolerated <Cele Abreu MD - Last Filed: 09/04/24 14:46> Prescriptions: No Action multivitamin Tablet 1 tab PO QAM cyanocobalamin (vitamin B-12) 1,000 mcg/mL solution 1,000 mcg IM .Every 30 Days calcium carbonate-vitamin D3 500 mg-3.125 mcg (125 unit) tablet 600 tab PO BID PreserVision AREDS-2 250-90-40-1 mg capsule 1 tab PO BID rosuvastatin 5 mg tablet 5 mg PO HS alendronate 70 mg tablet 70 mg PO .weekly 90 Days Qty: 13 3RF Eliquis 5 mg tablet 5 mg PO BID Qty: 180 3RF chlorthalidone 25 mg tablet 12.5 mg PO DAILY Qty: 90 3RF levothyroxine 75 mcg tablet 75 mcg PO DAILY Qty: 60 0RF Rx Instructions: 1 po daily on empty stomach losartan 50 mg tablet 50 mg PO DAILY Qty: 90 3RF metoprolol succinate 50 mg tablet extended release 24 hr 50 mg PO QDAY Qty: 90 3RF <Tiffanie Church MD - Last Filed: 09/05/24 11:01> Follow Up/Referrals: Huerta,Mukti B, PA-C [Primary Care Provider] - <Tiffanie Church MD - Last Filed: 09/05/24 11:01> Stand Alone Forms: My[facility] Info Instructions <Tiffanie Church MD - Last Filed: 09/05/24 11:01>
--- NOTE | 2024-09-03 20:35 | CRLHL7_ITS ---
For Patients: As a result of the Century Cures Act, medical imaging exams and procedure reports are released immediately into your electronic medical record. You may view this report before your referring provider. If you have questions, please contact your health care provider. INDICATION: VERTIGO, GAIT IMBALANCE - STARTED ABOUT 5PM TODAY. COMES AND GOES TECHNIQUE: Non-contrast CT of the head is submitted. COMPARISON: None. FINDINGS: The ventricles, sulci and gyri are of normal size, shape and contour for age. Midline structures are centrally located. No convincing evidence of intra- or extra-axial fluid collections. Trace bilateral mastoid effusions. IMPRESSION: No radiographic evidence of acute intracranial abnormalities. Please note that all CT scans at this facility use dose modulation, iterative reconstruction, and/or weight-based dosing when appropriate to reduce radiation dose to as low as reasonably achievable. Dictated by Yuri Ortiz MD @ 09/03/2024 10:08:30 PM (Electronically Signed)
--- NOTE | 2024-09-03 20:43 | CRLHL7_ITS ---
For Patients: As a result of the Century Cures Act, medical imaging exams and procedure reports are released immediately into your electronic medical record. You may view this report before your referring provider. If you have questions, please contact your health care provider. DATE: 09/03/2024 CLINICAL HISTORY: Patient with focal neurological deficits. TECHNIQUE: Standard helical CT image acquisition through the intracranial circulation following intravenous administration of contrast material with bolus tracking. 2D and 3D MIP images for post-processing were performed and interpreted on an independent workstation and 3D images were permanently archived. COMPARISON: CT same day. FINDINGS: There is no cerebral aneurysm or large vessel occlusion. The right internal carotid artery is normal. The right middle cerebral artery and its branches are normal. The right anterior cerebral artery and its branches are normal. The left internal carotid artery is normal. The left middle cerebral artery and its branches are normal. The left anterior cerebral artery and its branches are normal. The anterior communicating artery is well visualized and appears normal. The right vertebral artery and PICA are normal. The left vertebral artery and PICA are normal. The left vertebral artery is dominant. The basilar artery is patent and appears normal. The right posterior cerebral artery is normal. The left posterior cerebral artery is normal. IMPRESSION: Patent proximal intracranial vasculature without intracranial aneurysms. Please note that all CT scans at this facility use dose modulation, iterative reconstruction, and/or weight-based dosing when appropriate to reduce radiation dose to as low as reasonably achievable. Dictated by Elliott Baeza MD @ 09/04/2024 12:32:09 PM (Electronically Signed)
--- NOTE | 2024-09-03 20:43 | CRLHL7_ITS ---
For Patients: As a result of the Century Cures Act, medical imaging exams and procedure reports are released immediately into your electronic medical record. You may view this report before your referring provider. If you have questions, please contact your health care provider. DATE: 09/03/2024 CLINICAL HISTORY: Patient with focal neurological deficits. TECHNIQUE: Standard helical CT image acquisition of the neck up to the skull base after bolus intravenous contrast enhancement. 2D and 3D MIP images for post-processing were performed and interpreted on an independent workstation and 3D images were permanently archived. COMPARISON: CT same day. FINDINGS: The origins of the great vessels from the aortic arch are patent. The origin of the right vertebral artery is patent. The origin of the left vertebral artery is patent. The common carotid arteries are patent. There is no stenosis at the origin of the right internal carotid artery. There is no stenosis at the origin of the left internal carotid artery. The rest of the cervical segments of the internal carotid arteries are patent up to the skull base. The left vertebral artery is dominant. The cervical segments of the vertebral arteries are patent up to the skull base. The visualized lung apices are unremarkable. The thyroid gland is unremarkable. The soft tissues of the neck are unremarkable. There are degenerative changes in the cervical spine. IMPRESSION: Patent cervical vasculature. Please note that all CT scans at this facility use dose modulation, iterative reconstruction, and/or weight-based dosing when appropriate to reduce radiation dose to as low as reasonably achievable. Dictated by Elliott Baeza MD @ 09/04/2024 12:30:23 PM (Electronically Signed)
--- OUTSIDE RECORDS SUMMARY | 2024-09-03 20:43 | XMS_ITS | Clinical Summary ---
Author Organization [facility] Address [facility] [place] [place] [address] Care Team Providers Care Photographer News Name Role Phone [facility] [place] Primary Care Provider Allergies No known active [...] on file Legal Sex Female 11:42 AM NEON LIGHT INSTALLER Gender Identity Not on file Sexual Orientation [...] age to complete this topic Insurance MEDICARE [facility] MEDICARE SUPPLEMENT Care Teams Photographer News Relationship Specialty Start Date End Date [facility], [place] [address] [place] [address] PCP - General 01/07/21
--- OUTSIDE RECORDS SUMMARY | 2024-09-03 20:43 | XMS_ITS | Encounter Summary ---
Author Organization [facility] Address [address] [place] [address] Care Team Providers Care Television Actor Name Role Phone Chely Rodriges M.D. Primary Care Provider +1- [phone] Reason for Visit * Reason Comments Med Refill Encounter Details Date Type Department Care Team (Late st Contact Info) Description 07/21/2024 Refill Department of Family Medicine, [facility], in [address] [phone] Chely Rodriges M.D. [address] [place] [phone] Med Refill Social History Tobacco Use Types [...] your living situation today? I have a [facility] place to live 01/24/2023 Comments Unknown Sex and Gender Information Value Date Recorded Sex Assigned at Female 09/04/2023 1:24 PM FISHER TROLL LINE Legal Sex Female 4:29 AM FISHER TROLL LINE Gender Identity Female 09/04/2023 1:24 PM FISHER TROLL LINE Sexual Orientation Straight 09/04/2023 1: 24 PM FISHER TROLL LINE documented as of this encounter Plan of Treatment Not on file documented as of this encounter Visit Diagnoses Not on filedocumented in this encounter Care Teams Television Actor Relationship Specialty Start Date End Date Chely Rodriges M.D. [address] [place] [phone] PCP - General Family Medicine 12/20/22 [facility] Extension Educator 01/24/23 [facility] Salon Receptionist 01/24/23 documented as of this encounter
--- OUTSIDE RECORDS SUMMARY | 2024-09-03 20:43 | XMS_ITS | Clinical Summary ---
Author Organization [facility] Address [address] [place] [address] Care Team Providers Care Boilers Inspector Name Role Phone Chely Rodriges M.D. Primary Care Provider +1- [phone] Source Comments Patient records contain information from all sites at [facility]. For routine questions regarding patient records, call [phone] during business hours, M-F 8:00 AM - 5:00 PM Central Time. Record requests for emergency care only can be directed to [phone] at any time.[facility] Allergies No known active allergies Medications * [...] 50 mL Ifil As needed 11/10/2022 Active TTNzoiyejsy-rkoocugzb-BICJTIC rine 0.25%-1%-1:200,000 injection 2-50 mLIndications:Malignant Neoplasm Of [...] Therapy 07/25/2024 Refill Department of Family Medicine, [facility], in [address] [phone] Chely Rodriges M.D. Med Refill 07/21/2024 Refill Department of Family Medicine, [facility], in [address] [place] [phone] Chely Rodriges M.D. Med Refill 07/18/2024 Refill Department of Family Medicine, [facility], in [address] [place] [phone] Chely Rodriges M.D. Med Refill 07/03/2024 Refill Department of Family Medicine, [facility], in [address] [place] [phone] Chely Rodriges M.D. Med Refill 06/26/2024 Refill Department of Family Medicine, [facility], in [address] [place] [phone] Chely Rodriges M.D. Med Refill 06/18/2024 Refill Department of Family Medicine, [facility], in [address] [place] [phone] Chely Rodriges M.D. Med Refill from Last [...] your living situation today? I have a [facility] place to live 01/24/2023 Comments Unknown Sex and Gender Information Value Date Recorded Sex Assigned at Female 09/04/2023 1:24 PM CAGE MANAGER Legal Sex Female 4:29 AM CAGE MANAGER Gender Identity Female 09/04/2023 1:24 PM CAGE MANAGER Sexual Orientation Straight 09/04/2023 1: 24 PM CAGE MANAGER Last Filed Vital Signs Vital Sign Reading [...] M.D. LAB BLOOD ADD-ON Final Res ult [facility] [address] [place] [id number], [facility] CNFL [facility] [id number] [place] [phone] from Last 3 Months or Most Recently Relevant to Health Maintenance Insurance [facility] Advance Directives For more information, please contact: [phone] Documents on File Type Date Recorded Patient Sightseeing Guide Expl anation Advance Directives 01/01/2016 12:00 AM Leg acy document. See document viewer. Care Teams Boilers Inspector Relationship Specialty Start Date End Date Chely Rodriges M.D. [id number] [place] [phone] PCP - General Family Medicine 12/20/22 [facility] Dry Press Operator Helper 01/24/23 [facility] Patient Support Representative 01/24/23
--- OUTSIDE RECORDS SUMMARY | 2024-09-03 20:43 | XMS_ITS | Encounter Summary ---
Author Organization [facility] Address [address] [place] [address] Care Team Providers Care Disaster Response Director Name Role Phone Chely Rodriges M.D. Primary Care Provider +1- [phone] Reason for Visit * Reason Comments Med Refill Encounter Details Date Type Department Care Team (Late st Contact Info) Description 07/03/2024 Refill Department of Family Medicine, [facility], in [address] [phone] Chely Rodriges M.D. [address] [place] [phone] Med Refill Social History Tobacco Use Types [...] your living situation today? I have a [facility] place to live 01/24/2023 Comments Unknown Sex and Gender Information Value Date Recorded Sex Assigned at Female 09/04/2023 1:24 PM SHIPPING AGENT Legal Sex Female 4:29 AM SHIPPING AGENT Gender Identity Female 09/04/2023 1:24 PM SHIPPING AGENT Sexual Orientation Straight 09/04/2023 1: 24 PM SHIPPING AGENT documented as of this encounter Plan of Treatment Not on file documented as of this encounter Visit Diagnoses Not on filedocumented in this encounter Care Teams Disaster Response Director Relationship Specialty Start Date End Date Chely Rodriges M.D. [address] [place] [phone] PCP - General Family Medicine 12/20/22 [facility] Legal Entity Controller 01/24/23 [facility] Shove Up 01/24/23 documented as of this encounter
--- OUTSIDE RECORDS SUMMARY | 2024-09-03 20:43 | XMS_ITS | Encounter Summary ---
Author Organization [facility] Address [address] [place] [address] Care Team Providers Care Clothing Sorter Name Role Phone Chely Rodriges M.D. Primary Care Provider +1- [phone] Reason for Referral * Outpatient (Routine) - Authorized Specialty Diagnoses / Procedures Referred By Contac t Referred To Contact Chely Rodriges M.D. [address] [place] [phone] Phone: tel: fax: [facility] Referral ID Status Reason Start Date Expiration Date V isits Requested Visits Authorized [id number] Authorized 08/21/2024 02/20/2026 1 1 Scheduling Instructions Nurse AWV Do not schedule prior to due date to ensure insurance coverage Visit: Medicare Annual Wellness due on 01/26/2024. FIBER TAKER OFF Encounter Details Date Type Department Care Team (Late st Contact Info) Description 08/21/2024 Orders Only [facility] Chely Rodriges M.D. [address] [place] [phone] Monitoring For Therapeutic Drug Therapy Social History [...] your living situation today? I have a [facility] place to live 01/24/2023 Comments Unknown Sex and Gender Information Value Date Recorded Sex Assigned at Female 09/04/2023 1:24 PM HEMP FIBER TAKER OFF Legal Sex Female 4:29 AM HEMP FIBER TAKER OFF Gender Identity Female 09/04/2023 1:24 PM HEMP FIBER TAKER OFF Sexual Orientation Straight 09/04/2023 1: 24 PM HEMP FIBER TAKER OFF documented as of this encounter Plan of Treatment Scheduled Orders Name Type Priority Associated Diagnoses Orde r Schedule Basic Metabolic Panel Lab Routine Monitoring For Therapeutic Drug Therapy Expected: 09/04/2024, Expires: 02/07/2025 Scheduled Referrals Name Type Priority Associated Diagnoses Orde r Schedule Primary Care nurse visit (clinic) - [facility]; Medicare Annual Wellness Outpatient Referral Routine Expected: 09/18/2024, Expires: 02/07/2025 documented as of this encounter Visit Diagnoses Diagnosis Monitoring For Therapeutic Drug Therapy documented in this encounter Care Teams Clothing Sorter Relationship Specialty Start Date End Date Chely Rodriges M.D. NPMartina: [phone] [address] [place] [phone] PCP - General Family Medicine 12/20/22 [facility] Ginner 01/24/23 [facility] Cleat Feeder 01/24/23 documented as of this encounter
--- OUTSIDE RECORDS SUMMARY | 2024-09-03 20:43 | XMS_ITS | Continuity of Care Document ---
Author Organization [facility] Address [address] [place] [phone] Phone Care Team Providers Care Post Anesthesia Nurse Name Role Phone David Cohen O.D. Unavailable [...] Diagnoses Date Provider Providers Copied on Encounter [facility], [address] [place] [address], [id number], tel:[phone] [facility] Senile nuclear sclerosis Vicki Hernandez. [address] [place] [address], [id number], . tel:[phone] Referring Provider: David Hughes, [address] [place] [address], [phone]. tel:[phone] Family History Family Member Type Diagnosis Age At Onset Mother Problem (finding) Cancer Father Problem (finding) cataract Father Problem (finding) Heart Disease Payers Payer name Insurance type Covered democrat ID Authoriza tion(s) Medicare MB [id number] [facility] [id number] Social History Type Description Quantity Date Captured [...]
--- OUTSIDE RECORDS SUMMARY | 2024-09-03 20:43 | XMS_ITS | Encounter Summary ---
Author Organization [facility] Address [address] [place] [address] Care Team Providers Care Hearing Aid Assembly Supervisor Name Role Phone Chely Rodriges M.D. Primary Care Provider +1- [phone] Reason for Visit * Reason Comments Med Refill Encounter Details Date Type Department Care Team (Late st Contact Info) Description 07/25/2024 Refill Department of Family Medicine, [facility], in [address] [phone] Chely Rodriges M.D. [address] [place] [phone] Med Refill Social History Tobacco Use Types [...] your living situation today? I have a [facility] place to live 01/24/2023 Comments Unknown Sex and Gender Information Value Date Recorded Sex Assigned at Female 09/04/2023 1:24 PM ONYX CHIP TERRAZZO WORKER Legal Sex Female 4:29 AM ONYX CHIP TERRAZZO WORKER Gender Identity Female 09/04/2023 1:24 PM ONYX CHIP TERRAZZO WORKER Sexual Orientation Straight 09/04/2023 1: 24 PM ONYX CHIP TERRAZZO WORKER documented as of this encounter Miscellaneous Notes * Telephone Encounter - Amie Olson - 07/26/2024 11:28 AM CST PCP elsewhere CHIP TERRAZZO WORKER documented in this encounter Plan of Treatment Not on file documented as of this encounter Visit Diagnoses Not on filedocumented in this encounter Care Teams Hearing Aid Assembly Supervisor Relationship Specialty Start Date End Date Chely Rodriges M.D. [address] [place] [phone] PCP - General Family Medicine 12/20/22 [facility] Frame Opener 01/24/23 [facility] Oyster Bed Worker 01/24/23 documented as of this encounter
[2024-09-03 20:56] VITALS: O2SAT 98
[2024-09-03 20:58] LABS: Basophils Absolute Auto 0.04 K/uL (0.00-0.30); Basophils Percent Auto 0.6 % (0.0-3.0); Eosinophils Absolute Auto 0.29 K/uL (0.00-0.50); Eosinophils Percent Auto 4.7 % (0.0-7.0); Hematocrit 37.4 % (33.0-51.0); Hemoglobin* 12.4 gm/dL (12.0-16.0); Immature Granulocytes Abs Auto 0.06 K/uL (0.00-0.30); Lymphocytes Absolute Auto 1.49 K/uL (0.90-2.90); Lymphocytes Percent Auto 24.2 % (20-44); Mean Corpuscular HGB Conc 33 gm/dL (32-36); Mean Corpuscular Hemoglobin 32 pg (26-34); Mean Corpuscular Volume 95 fL (80-100); Monocytes Percent Auto 8.4 % (0.0-11.0); Neutrophils Absolute Auto 3.76 K/uL (1.7-7.0); Neutrophils Percent Auto 61.1 % (42.0-72.0); Platelet Count* 162 K/uL (140-440); RDW Coefficient of Variation % 12.4 % (11.5-15.5); Red Blood Count 3.93 m/uL (4.00-5.20); White Blood Count* 6.16 K/uL (4.50-11.00)
[2024-09-03 21:03] LABS: Slide Review Reflex No
[2024-09-03 21:11] LABS: Albumin* 4.4 g/dL (3.3-5.0); Chloride* 101 mmol/L (96-114); Potassium* 3.7 mmol/L (3.6-5.1); Sodium* 138 mmol/L (135-149)
[2024-09-03 21:13] LABS: Creatinine* 1.1 mg/dL (0.5-1.5); Est. Creatinine Clearance* 27.42; Estimated Glomerular Filt Rate 48 ml/min
[2024-09-03 21:14] LABS: Alanine Aminotransferase* 32 U/L (4-35); Alkaline Phosphatase* 48 U/L (40-150); Anion Gap 7 mEq/L (7-15); Aspartate Amino Transferase* 34 U/L (12-35); Bilirubin Total* 0.6 mg/dL (0.1-1.5); Blood Urea Nitrogen* 28 mg/dL (7-30); Calcium* 9.4 mg/dL (8.4-10.6); Carbon Dioxide* 30 mmol/L (20-32); Glucose* 125 mg/dL (60-115); Magnesium* 2.3 mg/dL (1.5-2.6); Total Protein* 6.9 g/dL (6.0-8.3)
[2024-09-03 22:10] VITALS: BP 169/82; PULSE 62; RESP 16; O2SAT 98
[2024-09-03 23:00] VITALS: PULSE 57; RESP 14; O2SAT 96
[2024-09-03] MEDS: MECLIZINE HCL 25 MG TABLET PO (23:10)
[2024-09-04] VITALS (7 sets, daily range): BP systolic 128–186; BP diastolic 69–94; PULSE 53–72; RESP 12–18; O2SAT 94–98
[2024-09-04 07:32] LABS: Cholesterol* 146 mg/dL (90-199); Triglycerides* 66 mg/dL (40-149)
[2024-09-04 07:33] LABS: HDL Cholesterol* 76 mg/dL (>=50); LDL Cholesterol Calculated 57 mg/dL (<100)
[2024-09-04] MEDS: APIXABAN 5 MG TABLET PO (09:08)
[2024-09-04] MEDS: PERFLUTREN LIPID MICROSPHERES 2 ML VIAL IVP (13:21)
--- NOTE | 2024-09-04 22:44 | CRLHL7_ITS ---
For Patients: As a result of the Century Cures Act, medical imaging exams and procedure reports are released immediately into your electronic medical record. You may view this report before your referring provider. If you have questions, please contact your health care provider. Indication: Vertigo. Gait imbalance. Technique: Multiplanar, multisequence MRI of the brain was performed without intravenous contrast. Comparison: CT head 09/03/2024. Findings: The corpus callosum, pituitary gland and clivus appear intact. Mild degenerative change visualized upper cervical spine. There is no restricted diffusion. No intracranial hemorrhage. The ventricles are proportionate to the cerebral sulci. The 4th ventricle appears midline. The basal cisterns appear patent. No abnormal extra-axial fluid collection identified. Mild parenchymal volume loss. Scattered T2 FLAIR hyperintense foci within the subcortical and periventricular white matter, favored to represent chronic ischemic microvascular disease. There is no intracranial mass, abnormal mass-effect or midline shift identified. Major intracranial vascular flow voids appear grossly intact. Thinning of the ocular lenses. Small left mastoid effusion. Impression: 1. No acute/subacute infarct. 2. Mild chronic ischemic microvascular disease. Dictated by Sid Zamorano MD @ 09/04/2024 11:12:25 AM (Electronically Signed)
== END 2024-09-04 15:08 | disposition home or self-care (01) ==
PROVIDERS: Emergency Provider Family Medicine; PCP Physician Assistant Medical
DX: R42 Dizziness and giddiness (principal); I48.91 Unspecified atrial fibrillation; I10 Essential (primary) hypertension; E78.5 Hyperlipidemia, unspecified; Z79.899 Other long term (current) drug therapy; Z79.01 Long term (current) use of anticoagulants
CPT/HCPCS: 36415; 70450; 70496; 70498; 70551; 80053; 80061; 83036; 83735; 85025; 93005; 93306; 94761; 96374; 99284; 99285; G0425; A9270; Q9957; Q9967

== ENCOUNTER 2024-09-11 13:10 | Outpatient (CLI) | payer MEDICARE, SELFPAY | END 2024-09-11 13:11 | disposition home or self-care (01) | LOC: NFLDREF 09-13 03:19 | PROVIDERS: PCP Physician Assistant Medical; Referring Provider Physician Assistant Medical; Visit Provider Physician Assistant Medical | DX: E03.9 Hypothyroidism, unspecified (principal); R42 Dizziness and giddiness; L84 Corns and callosities | CPT/HCPCS: 84439; 84443 ==

== ENCOUNTER 2024-10-17 13:30 | Outpatient (CLI) | payer MEDICARE, SELFPAY ==
--- NOTE | 2024-10-17 14:40 | CRLHL7_ITS ---
For Patients: As a result of the Century Cures Act, medical imaging exams and procedure reports are released immediately into your electronic medical record. You may view this report before your referring provider. If you have questions, please contact your health care provider. BILATERAL SCREENING MAMMOGRAM WITH COMPUTER-AIDED DETECTION AND TOMOSYNTHESIS TECHNIQUE: CC and MLO views were obtained. These mammographic images have been obtained using full-field digital technique. These mammographic images were interpreted with the benefit of computer-aided detection. Breast Tomosynthesis was used in this interpretation. COMPARISON FILM: 04/04/18, 03/23/17, 02/24/16. FINDINGS: There are scattered areas of fibroglandular density. IMPRESSION: There is no radiographic evidence for malignancy. ASSESSMENT: BI-RADS Category 2: Benign RECOMMENDATION: Routine screening mammogram in 1 year. A lay language report of this examination will be provided to the patient. Roger Patterson M.D. Diagnostic Radiologist [email or web address] SP/Dictated by: Roger Patterson MD @ 10/22/2024 10:23:00 AM (Electronically Signed)
== END 2024-10-17 13:31 | disposition home or self-care (01) ==
LOC: MAMMO 13:32
PROVIDERS: PCP Physician Assistant Medical; Visit Provider Physician Assistant Medical
DX: Z12.31 Encounter for screening mammogram for malignant neoplasm of breast (principal)
CPT/HCPCS: 77063; 77067